=== PATIENT | female | born 1975 | race Caucasian/White ===

== ENCOUNTER 2016-11-04 12:34 | Emergency (ER) | payer OTHER ==
[~2016-11-04] VITALS: Ht 172.7 cm; Wt 116.6 kg
[~2016-11-04 12:34] MED LIST: NITR-5 PO; OXYC-57 PO; PRED50TA PO
[2016-11-04 12:37] VITALS: TEMP 37.6; Ht 172.7 cm; Wt 116.6 kg
[2016-11-04] MEDS ORDERED: ASPIRIN 81 MG CHEW PO STA (13:08)
[2016-11-04] MEDS ORDERED: FENTANYL CITRATE INJ 50 MCG/1 ML 2 ML VIAL IV STA (13:13)
[2016-11-04 13:15] LABS: BASO % 0.6 %; BASO ABS # 0.05 K/uL (0-0.2); COMPLETE YES; EOS % 6.7 %; IG% 0.1 %; LYMPH % 40.8 %; LYMPH ABS # 3.16 K/uL (1.2-3.4); MEAN CELL VOLUME 92.4 fL (80-100); MEAN CORPUSCULAR HEMOGLOBIN 31.9 pg (25-34); MEAN CORPUSCULAR HGB CONC 34.5 g/dl (32-36); MEAN PLATELET VOLUME 9.7 fL (7.4-10.4); NEUT % 42.8 %; PLATELET COUNT 347 K/uL (130-400); RED BLOOD COUNT 4.33 M/uL (4.2-5.4); WHITE BLOOD COUNT 7.74 K/uL (4.8-10.8)
[2016-11-04] MEDS ORDERED: SODIUM CHLORIDE 0.9% 1000ML 1,000 ML IV STA (13:18)
[2016-11-04] MEDS ORDERED: CITA20TA4 PO (13:31)
[2016-11-04] MEDS ORDERED: LORA-741 PO (13:31)
[2016-11-04] MEDS ORDERED: LISI-461 PO (13:31)
[2016-11-04 13:34] LABS: BLOOD UREA NITROGEN 11 mg/dl (7-18); CALCIUM 9.5 mg/dl (8.5-10.1); CARBON DIOXIDE 27 mmol/L (21-32); CHLORIDE 101 mmol/L (98-107); CREATININE 0.85 mg/dl (0.60-1.20); GLUCOSE 97 mg/dl (70-99); POTASSIUM 3.5 mmol/L (3.5-5.1); SODIUM 139 mmol/L (136-145)
--- NOTE | 2016-11-04 13:55 | DIAGNOSTIC IMAGING REPORT ---
CHEST ONE VIEW PORTABLE CLINICAL HISTORY: Chest Pain dyspnea COMPARISON STUDY: No previous studies for comparison. FINDINGS: The bones soft tissues and hemidiaphragms are normal. The cardiomediastinal silhouette is normal. The lungs are clear. The pulmonary vasculature is normal. IMPRESSION: Negative chest. Electronically signed by: Tony Santiago M.D. 11/04/2016 1:53 PM Dictated Date/Time: 11/04/2016 1:53 PM
[2016-11-04] MEDS ORDERED: OPTIRAY 320 IV PRN (14:30)
--- NOTE | 2016-11-04 14:52 | DIAGNOSTIC IMAGING REPORT ---
CHEST CTA for PULMONARY ARTERIES CT DOSE: 619.02 mGycm HISTORY: Atypical chest pain. TECHNIQUE: Multiaxial CT images of the chest were performed following the intravenous administration of contrast to evaluate the pulmonary arteries. Maximal intensity projection images were also obtained. COMPARISON STUDY: Chest CTA 05/20/06 FINDINGS: There is a normal caliber thoracic aorta with no evidence for dissection. There is no evidence for pulmonary embolus. No pleural effusions. No pneumothorax. No mediastinal or hilar lymphadenopathy. The central airways are patent. Calcified left mediastinal or left hilar lymph nodes are again noted. Hepatic steatosis. Punctate calcification within the spleen. Punctate calcified granuloma within the left upper lobe. Otherwise, the lungs are clear IMPRESSION: No evidence for pulmonary embolus. Electronically signed by: Erasto Florian M.D. 11/04/2016 2:51 PM Dictated Date/Time: 11/04/2016 2:42 PM
[2016-11-04 16:50] VITALS: BP 132/72; PULSE 86; O2SAT 98
--- NOTE | 2016-11-04 21:00 | EMERGENCY ROOM VISIT NOTE ---
History Report prepared by Armando: Libby Luque Under the Supervision of: Dr. Stephen Pena D.O. First contact with patient: 13:02 Chief Complaint: COUGH Stated Complaint: CHEST PAIN, L ARM NUMB Nursing Triage Summary: Pt c/o chest pain with cough and congestion since this morning, then started getting left ear pain and numbness in her whole arm down to her pinky. Pt c/o cough, productive, "heavy, clear liquid" x 2 months. History of Present Illness The patient is a 41 year old female who presents to the Emergency Room with complaints of persistent left sided chest pain that began this morning around 0900. She currently rates her discomfort as a 7/10 in severity. The patient states that this morning she started noticing a heaviness in her chest at 9 AM. She states that she was going to try to take her blood pressure medications, but states that she did not have them with her. The patient states that her pain began to worsen and started noticing left arm numbness. She additionally notes a pain into her left jaw and behind her left ear. The patient states that she called her PCP and explained her symptoms and was instructed to come to the emergency department for further work up. She states that her pain is worsened with breathing, noting that it becomes sharp but describes it persistently as a tightness. The patient additionally notes increased swelling to her lower extremities. The patient states that she has had a recent cough and congestion that began two months ago. She notes a personal history of hypertension and asthma, but denies any history of diabetes, high cholesterol, or heart disease. The patient denies any family history of sudden at a young age. She denies any recent travel. The patient denies taking any aspirin today. Pt denies headache, change in vision, fevers, sore throat, shortness of breath, nausea, vomiting, diarrhea, pain with urination, and melena. Source of History: patient Onset: this morning around 0900 Position: chest (left) Symptom Intensity: 7/10 Quality: sharp, other (heaviness, tightness) Timing: other (persistent) Modifying Factors (Worsening): breathing Associated Symptoms: + cough, + numbness (left arm) Note: Associated Symptoms: Increased swelling to lower extremities, congestion, pain radiating to left ear and jaw Review of Systems See HPI for pertinent positives & negatives. A total of 10 systems reviewed and were otherwise negative. Past Medical & Surgical Medical Problems: (1) Asthma (2) Bronchitis (3) Hypertension (4) Kidney stone (5) Pneumonia Surgical Problems: (1) H/O: hysterectomy Family History FH: cancer FH: heart disease FH: lung disease Hypertension Seizures Social History Smoking Status: Former Smoker Smokeless Tobacco Use: No Alcohol Use: occasionally Marital Status: single Housing Status: lives with family Occupation Status: employed Current/Historical Medications Scheduled Citalopram Hydrobromide (Citalopram Hydrobromide), 20 MG PO DAILY Lisinopril (Zestril), 10 MG PO DAILY Scheduled PRN Lorazepam (Ativan), 0.5 MG PO DAILY PRN for Anxiety Allergies Coded Allergies: Sulfa Drugs (Verified Allergy, Unknown, 11/04/16) Physical Exam Vital Signs Date Time Temp Pulse Resp B/P Pulse Ox O2 Delivery O2 Flow Rate FiO2 11/04/16 16:50 86 18 132/72 98 11/04/16 15:33 80 18 116/75 98 Room Air 11/04/16 14:57 93 20 131/87 98 Room Air 11/04/16 13:39 90 11/04/16 13:16 91 21 157/85 98 Room Air 11/04/16 12:37 37.6 106 18 185/100 97 Room Air Physical Exam GENERAL: Sitting up in bed, alert, well appearing, well nourished, no distress, non-toxic EYE EXAM: normal conjunctiva, extraocular muscles intact OROPHARYNX: no exudate, no erythema, lips, buccal mucosa, and tongue normal and mucous membranes are moist NECK: supple, no nuchal rigidity, no adenopathy, non-tender LUNGS: Clear to auscultation. Normal chest wall mechanics HEART: no murmurs, S1 normal and S2 normal ABDOMEN: abdomen soft, non-tender, normo-active bowel sounds, no masses, no rebound or guarding. BACK: Back is symmetrical on inspection and there is no deformity, no midline tenderness, no CVA tenderness. SKIN: no rashes and no bruising UPPER EXTREMITIES: upper extremities are grossly normal. Radial pulses are equal bilaterally. LOWER EXTREMITIES: No pitting edema. NEURO EXAM: Normal sensorium, cranial nerves II-XII intact, normal speech, no weakness of arms, no weakness of legs. No drift. Finger to nose intact. Gross sensation intact. Medical Decision & Procedures ER Provider Diagnostic Interpretation: Xray results per the radiologist and my interpretation. Other results have been interpreted by the radiologist and reviewed by me. CHEST ONE VIEW PORTABLE CLINICAL HISTORY: Chest Pain dyspnea COMPARISON STUDY: No previous studies for comparison. FINDINGS: The bones soft tissues and hemidiaphragms are normal. The cardiomediastinal silhouette is normal. The lungs are clear. The pulmonary vasculature is normal. IMPRESSION: Negative chest. Electronically signed by: Tony Santiago M.D. 11/04/2016 1:53 PM Dictated Date/Time: 11/04/2016 1:53 PM CHEST CTA for PULMONARY ARTERIES CT DOSE: 619.02 mGycm HISTORY: Atypical chest pain. TECHNIQUE: Multiaxial CT images of the chest were performed following the intravenous administration of contrast to evaluate the pulmonary arteries. Maximal intensity projection images were also obtained. COMPARISON STUDY: Chest CTA 05/20/06 FINDINGS: There is a normal caliber thoracic aorta with no evidence for dissection. There is no evidence for pulmonary embolus. No pleural effusions. No pneumothorax. No mediastinal or hilar lymphadenopathy. The central airways are patent. Calcified left mediastinal or left hilar lymph nodes are again noted. Hepatic steatosis. Punctate calcification within the spleen. Punctate calcified granuloma within the left upper lobe. Otherwise, the lungs are clear IMPRESSION: No evidence for pulmonary embolus. Electronically signed by: Erasto Florian M.D. 11/04/2016 2:51 PM Dictated Date/Time: 11/04/2016 2:42 PM Laboratory Results 11/04/16 13:00 Red Blood Count 4.33, Mean Corpuscular Volume 92.4, Mean Corpuscular Hemoglobin 31.9, Mean Corpuscular Hemoglobin Concent 34.5, Mean Platelet Volume 9.7, Neutrophils (%) (Auto) 42.8, Lymphocytes (%) (Auto) 40.8, Monocytes (%) (Auto) 9.0, Eosinophils (%) (Auto) 6.7, Basophils (%) (Auto) 0.6, Neutrophils # (Auto) 3.30, Lymphocytes # (Auto) 3.16, Monocytes # (Auto) 0.70, Eosinophils # (Auto) 0.52, Basophils # (Auto) 0.05 11/04/16 13:00 Test 11/04/16 13:00 11/04/16 14:55 White Blood Count 7.74 K/uL (4.8-10.8) Red Blood Count 4.33 M/uL (4.2-5.4) Hemoglobin 13.8 g/dL (12.0-16.0) Hematocrit 40.0 % (37-47) Mean Corpuscular Volume 92.4 fL (80-100) Mean Corpuscular Hemoglobin 31.9 pg (25-34) Mean Corpuscular Hemoglobin Concent 34.5 g/dl (32-36) Platelet Count 347 K/uL (130-400) Mean Platelet Volume 9.7 fL (7.4-10.4) Neutrophils (%) (Auto) 42.8 % Lymphocytes (%) (Auto) 40.8 % Monocytes (%) (Auto) 9.0 % Eosinophils (%) (Auto) 6.7 % Basophils (%) (Auto) 0.6 % Neutrophils # (Auto) 3.30 K/uL (1.4-6.5) Lymphocytes # (Auto) 3.16 K/uL (1.2-3.4) Monocytes # (Auto) 0.70 K/uL (0.11-0.59) Eosinophils # (Auto) 0.52 K/uL (0-0.5) Basophils # (Auto) 0.05 K/uL (0-0.2) RDW Standard Deviation 47.0 fL (36.4-46.3) RDW Coefficient of Variation 13.9 % (11.5-14.5) Immature Granulocyte % (Auto) 0.1 % Immature Granulocyte # (Auto) 0.01 K/uL (0.00-0.02) D-Dimer 1030 ug/L FEU (0-500) Anion Gap 11.0 mmol/L (3-11) Est Creatinine Clear Calc Drug Dose 114.5 ml/min Estimated GFR () 97.3 Estimated GFR (Non- 83.9 BUN/Creatinine Ratio 13.0 (10-20) Calcium Level 9.5 mg/dl (8.5-10.1) Total Creatine Kinase 206 U/L (26-192) Creatine Kinase MB 2.0 ng/ml (0.5-3.6) Creatine Kinase MB Ratio 1.0 (0-3.0) Chemistry Specimen Hemolysis Troponin I < 0.015 ng/ml (0-0.045) Laboratory results per my review. Medications Administered Medications (Trade) Dose Ordered Sig/Pan Route Start Time Stop Time Status Last Admin Dose Admin Aspirin (Aspirin Chew) 324 mg NOW STAT PO 11/04/16 13:08 11/04/16 13:10 DC 11/04/16 13:17 324 MG Fentanyl Citrate 50 mcg 50 mcg ONE STAT IV 11/04/16 13:13 11/04/16 13:14 DC 11/04/16 13:35 50 MCG Sodium Chloride (Nss 1000ml) 1,000 ml @ 999 mls/hr Q1H1M STAT IV 11/04/16 13:18 11/04/16 14:18 DC 11/04/16 13:35 999 MLS/HR ECG Indication: chest pain Rate (beats per minute): 104 Rhythm: sinus tachycardia Findings: no ectopy, other (normal axis, normal intervals) ED Course ED COURSE: Vital signs were reviewed and showed tachycardic and hypertensive The patients medical record was reviewed The above diagnostic studies were performed and reviewed. ED treatments and interventions as stated above. 1304: The patient was evaluated in room C1B. A complete history and physical examination was performed. 1308: Ordered Aspirin 324 mg PO. 1313: Ordered Fentanyl Citrate 50 mcg IV. 1318: Ordered Sodium Chloride 1000 ml @ 999 mls/hr IV. 1425: I reevaluated the patient and informed her of her test results. She is going to have a CT scan. 1504: I discussed the patients case with Dr. Marroquin, Cardiology. He is going to stress the patient. 1507: I reevaluated the patient and she is resting comfortably. I discussed the exam findings with her. And she is going to be stressed by cardiology. She is in agreement with the plan. 1529: Per nursing staff, the patient is going over for her stress test now. 1628: Upon reevaluation, the patient is resting comfortably.I discussed my findings with the patient and she understands and agrees with the treatment plan. Based on the patients age, coexisting illnesses, exam and lab findings the decision to treat as an outpatient was made. The patient remained stable while under my care. The patient appeared well at the time of discharge. Medical Decision Differential diagnoses includes but is not limited to acute coronary syndrome, myocardial infarction, pericarditis, pulmonary embolus, aortic dissection, pneumonia, pneumothorax, musculoskeletal, shingles, esophageal. Patient is a 41-year-old female who presents the ER for chest pain with associated with left arm paresthesias and jaw pain. This started around 9 AM this morning. No significant shortness of breath with this. Labs show no significant leukocytosis or anemia. BMP was unremarkable. Troponins were negative 2. D-dimer was positive CT PE Was Performed and Was Negative. Discussed case with cardiology and stress test was performed which was negative. With her cough and upper esterase symptoms I favor this is likely a pleuritis at this point especially with a negative stress test and a negative CT PE. I updated the patient regards this. She had previously received aspirin upon presentation. Discussed with Pt concerning signs and symptoms to watch out for. Pt was instructed to follow up with their PCP and discussed with the patient their option to return to the ED at anytime for persistent or worsening symptoms. The appropriate anticipatory guidance and out-patient management, including indications for return to the emergency department, were explained at length to the patient and understood. Consults Time Called: 1502 Consulting Physician: Dr. Marroquin, Cardiology Returned Call: 1504 I discussed the patients case with Dr. Marroquin, Cardiology. He is going to stress the patient. Impression Primary Impression: Left sided chest pain Additional Impression: Cough Scribe Attestation The scribe's documentation has been prepared under my direction and personally reviewed by me in its entirety. I confirm that the note above accurately reflects all work, treatment, procedures, and medical decision making performed by me. Departure Information Dispostion Home / Self-Care Referrals Zena Kirk, C.R.N.P. (PCP) Forms HOME CARE DOCUMENTATION FORM, IMPORTANT VISIT INFORMATION Patient Instructions Chest Pain - [facility], My [facility] Additional Instructions Please follow up with your primary care doctor with in the next 24 hours. Any worsening of your symptoms, please return to the ED immediately. This includes fevers greater than 100.4, worsening chest pain, shortness of breath, passing out, or any other concerning signs or symptoms from your standpoint. Please take Motrin or Tylenol as needed for pain. CT of your chest was unremarkable and your stress test was completely negative. Problem Qualifiers
--- NOTE | 2016-11-05 11:25 | EXERCISE STRESS ECHO ---
*NOTICE TO RECEIVING [employer] This information is strictly Confidential and protected under [place] law. [place] law prohibits you from making any further disclosure of this information unless further disclosure is expressly permitted by the written consent of the person to whom it pertains or is authorized by law. A general authorization for the release of medical or other information is not sufficient for this purpose. Hospital accepts no responsibility if the information is made available to any other person, INCLUDING THE PATIENT. Interpretation Summary * Name: AMADA TRAN Study Date: 11/04/2016 03:40 PM BP: 151/72 mmHg * Patient Location: [facility] HR: 98 * : 1975 (M/d/yyyy) Gender: Female Height: 68 in * Age: 41 yrs Ethnicity: [place] Weight: 257 lb * Ordering Physician: Stephen Pena * Performed By: Erin Gross RDCS * * Reason For Study: Chest pain * BSA: 2.3 m2 * -- Conclusions -- * Normal stress echocardiogram at 8.6 METS and a peak heart rate of 87% predicted maximum. * No exercise induced chest pain. * No ECG changes. * Baseline echocardiogram notes normal left ventricular systolic function without wall motion abnormalities. Procedure Details * ECHOEX, CPT #84715 Left Ventricle * Left ventricular systolic function is normal. * Resting wall motion: Normal. Stress wall motion: Appropriate increase in Left ventricular systolic function and decrease in cavity size. No stress induced segmental wall motion abnormalities. Stress Parameters * The baseline ECG displays normal sinus rhythm. * The stress ECG response was normal * The stress portion of this study was personally supervised by the undersigned interpreting physician. * Rest heart rate was '98' BPM. * Rest blood pressure was '151/72' * Maximum heart rate achieved was 155 bpm. * Maximum heart rate was 87 % of maximum age-predicted heart rate. * Maximum blood pressure was '210/50' * Total exercise time was '7:05' * Maximum exercise MET level achieved was '8.60' METS * Maximum treadmill speed was '3.40' miles per hour. * Maximum treadmill elevation was '14.00'% grade. * Exercise was terminated due to 'achieving target heart rate'
== END 2016-11-04 16:52 | disposition home or self-care (01) ==
LOC: C.EDB 12:36 → C.EDC 16:52
DX: R07.9 Chest pain, unspecified (principal); I10 Essential (primary) hypertension; J45.909 Unspecified asthma, uncomplicated; Z87.442 Personal history of urinary calculi; Z87.01 Personal history of pneumonia (recurrent); Z90.710 Acquired absence of both cervix and uterus; Z82.49 Family history of ischemic heart disease and other diseases of the circulatory system; Z82.0 Family history of epilepsy and other diseases of the nervous system; Z79.899 Other long term (current) drug therapy; R20.9 Unspecified disturbances of skin sensation

== ENCOUNTER → 2016-12-25 | Outpatient (CLI) | payer OTHER ==
[~2016-12-25] MED LIST changes: +CITA20TA4 PO; +LISI-461 PO; +LORA-741 PO; -NITR-5 PO; -OXYC-57 PO; -PRED50TA PO
--- NOTE | 2016-12-25 15:15 | DIAGNOSTIC IMAGING REPORT ---
ADDENDUM ADDENDUM: A 08/10/2015 examination from [facility] was subsequently presented for comparison. All findings were reported are unchanged. As noted, the region of subtle FLAIR hyperintensity within the left frontal lobe white matter is unchanged dating back to 2006 and of low suspicion. No heterotopic hartley matter is identified. Electronically signed by: Champ Escudero M.D. 12/27/2016 11:29 AM Dictated Date/Time: 12/27/2016 11:27 AM ORIGINAL REPORT MRI OF THE BRAIN WITHOUT IV CONTRAST CLINICAL HISTORY: Follow-up unspecified abnormal MRI of the brain. COMPARISON STUDY: CT of the brain dated 05/07/2012. MRI of the brain dated 01/08/2007. TECHNIQUE: MRI of the brain was performed utilizing various T1 and T2-weighted sequences in the axial, sagittal, and coronal planes. IV contrast was not administered for this examination. FINDINGS: Brain parenchyma: A faint tiny focus of T2 signal abnormality within the left posterior frontal/periventricular white matter is unchanged dating back to the 01/08/2007 examination and of doubtful significance. The brain parenchyma is otherwise normal in appearance. There is no hemorrhage or mass effect. There is no restricted diffusion to suggest acute ischemia. Hartley-white matter differentiation is preserved. No extra-axial fluid collection is seen. The cerebellar tonsils are normal in configuration. Ventricles, sulci, and cisterns: Normal in configuration. Pituitary and sella: Unremarkable. Intracranial vasculature: Normal flow voids are maintained at the skull base. Orbits: The bony orbits are grossly intact. Orbital contents are normal in appearance. Sinuses and mastoids: Trace mucosal thickening is seen in the right sphenoid sinus. The remaining paranasal sinuses and the mastoid air cells are clear. Calvarium: Unremarkable. Cervical cord: Partially visualized cervical spinal cord is normal in morphology and signal intensity. IMPRESSION: No acute intracranial abnormality. Electronically signed by: Champ Escudero M.D. 12/25/2016 3:13 PM Dictated Date/Time: 12/25/2016 2:03 PM
== END | disposition home or self-care (01) ==
LOC: C.MRI 13:04
PROVIDERS: ATTEND Psychiatry & Neurology Neurology
DX: R90.89 Other abnormal findings on diagnostic imaging of central nervous system (principal); R25.3 Fasciculation

== ENCOUNTER → 2017-03-03 | Outpatient (CLI) | payer OTHER ==
[2017-03-03 13:32] LABS: ALT/SGPT 31 U/L (12-78); BLOOD UREA NITROGEN 13 mg/dl (7-18); BUN/CREATININE RATIO 17.2 (10-20); CALCIUM 9.5 mg/dl (8.5-10.1); CARBON DIOXIDE 26 mmol/L (21-32); CHLORIDE 105 mmol/L (98-107); CHOLESTEROL 194 mg/dl (0-200); CREATININE 0.76 mg/dl (0.60-1.20); GLUCOSE 90 mg/dl (70-99); POTASSIUM 3.6 mmol/L (3.5-5.1); SODIUM 140 mmol/L (136-145); TRIGLYCERIDES 157 mg/dl (0-150); VERY LOW DENSITY LIPOPROT CALC 31 mg/dl
[2017-03-03 13:35] LABS: ALKALINE PHOSPHATASE 83 U/L (45-117); AST/SGOT 20 U/L (15-37); CHOLESTEROL/HDL RATIO 4.6; HDL CHOLESTEROL 42 mg/dl; LDL CHOLESTEROL CALCULATED 121 mg/dl
== END | disposition home or self-care (01) ==
LOC: C.LABBFT 07:39
PROVIDERS: ATTEND Nurse Practitioner
DX: K76.0 Fatty (change of) liver, not elsewhere classified (principal)

== ENCOUNTER 2017-10-07 19:34 | Emergency (ER) | payer OTHER ==
[~2017-10-07] VITALS: Ht 175.3 cm; Wt 120.0 kg
[2017-10-07 19:47] VITALS: TEMP 36.8; Ht 175.3 cm; Wt 120.0 kg
[2017-10-07] MEDS ORDERED: OXYCODONE HCL IR 5 MG TAB (IMMEDIATE RELEASE) PO STA (19:57)
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
[2017-10-07] MEDS ORDERED: AMLO-110 PO (21:06)
[2017-10-07] MEDS ORDERED: PROAIR INH (21:06)
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
[2017-10-07] MEDS ORDERED: OXYCODONE IR HOME PACK PO STA (21:16)
[2017-10-07] MEDS ORDERED: OXYC1TAB3 PO (21:17)
[2017-10-07 21:36] VITALS: BP 169/100; PULSE 90; O2SAT 96
== END 2017-10-07 21:38 | disposition home or self-care (01) ==
LOC: C.EDB 19:36 → C.EDD 21:38
DX: S09.90XA Unspecified injury of head, initial encounter (principal); M54.2 Cervicalgia; M54.9 Dorsalgia, unspecified; M79.602 Pain in left arm; V43.52XA Car driver injured in collision with other type car in traffic accident, initial encounter; J45.909 Unspecified asthma, uncomplicated; I10 Essential (primary) hypertension; Z87.442 Personal history of urinary calculi; Z87.01 Personal history of pneumonia (recurrent); Z90.710 Acquired absence of both cervix and uterus; Z80.9 Family history of malignant neoplasm, unspecified; Z82.49 Family history of ischemic heart disease and other diseases of the circulatory system; Z82.0 Family history of epilepsy and other diseases of the nervous system; Z79.899 Other long term (current) drug therapy

== ENCOUNTER → 2017-10-22 | Outpatient (CLI) | payer OTHER ==
[~2017-10-22] MED LIST changes: +AMLO-110 PO; -LISI-461 PO; +OXYC1TAB3 PO; +PROAIR INH
--- NOTE | 2017-10-22 16:54 | DIAGNOSTIC IMAGING REPORT ---
CERVICAL SPINE MRI HISTORY: Neck pain. Left arm pain. CERVICAL DISC HERNIATION TECHNIQUE: Multiplanar multisequence MRI of the cervical spine was performed without the use of contrast. COMPARISON STUDY: Cervical spine CT 10/07/2017. FINDINGS: Straightening of the cervical spine. No fracture or subluxation. Prevertebral soft tissues and the C1-C2 interval are intact. Normal marrow signal intensity seen throughout the visualized osseous structures. The cervical spinal cord is normal in course, caliber, and signal intensity. Mild facet arthrosis at C7-T1. Mild disc space narrowing at C6-C7 with small endplate osteophytes. C2-C3: No significant central canal or neural foraminal narrowing. C3-C4: No significant central canal or neural foraminal narrowing. C4-C5: Focal central annular tear without significant central canal or neural foraminal narrowing. C5-C6: Small right paracentral focal disc protrusion without significant central canal or neural foraminal narrowing. C6-C7: Small broad-based posterior disc protrusion resulting in partial effacement of the anterior thecal sac without cord deformity. There is trace increased T2 signal at the epidural space at this location which may represent edema from the acute disc herniation. No significant neural foraminal narrowing. C7-T1: No significant central canal or neural foraminal narrowing. IMPRESSION: 1. No fractures or subluxation within the cervical spine. 2. Straightening of the cervical spine. 3. Small right paracentral focal disc protrusion at C5-C6 without significant central canal or neural foraminal narrowing. 4. Small broad-based posterior disc protrusion resulting in partial effacement of the anterior thecal sac without cord deformity. There is trace increased T2 signal at the epidural space at this location adjacent to the disc herniation which may represent edema from the acute disc herniation. Electronically signed by: Erasto Florian M.D. 10/22/2017 4:53 PM Dictated Date/Time: 10/22/2017 4:37 PM
== END | disposition home or self-care (01) ==
LOC: C.MRIBC 15:35
PROVIDERS: ATTEND Orthopaedic Surgery Orthopaedic Surgery of the Spine
DX: M50.20 Other cervical disc displacement, unspecified cervical region (principal)

== ENCOUNTER → 2017-10-27 | Outpatient (CLI) | payer OTHER ==
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
== END | disposition home or self-care (01) ==
LOC: C.MRI 18:09
PROVIDERS: ATTEND Nurse Practitioner
DX: G44.309 Post-traumatic headache, unspecified, not intractable (principal); S06.0X9S Concussion with loss of consciousness of unspecified duration, sequela; V49.9XXS Car occupant (driver) (passenger) injured in unspecified traffic accident, sequela

== ENCOUNTER → 2017-11-25 | Outpatient (CLI) | payer OTHER | LOC: C.LABSPEC 17:07 | PROVIDERS: ATTEND Physician Assistant | DX: K13.79 Other lesions of oral mucosa (principal) ==

== ENCOUNTER → 2017-12-01 | Outpatient (CLI) | payer OTHER ==
[2017-12-01 15:03] LABS: BLOOD UREA NITROGEN 20 mg/dl (7-18); CALCIUM 9.5 mg/dl (8.5-10.1); CARBON DIOXIDE 27 mmol/L (21-32); CREATININE 0.89 mg/dl (0.60-1.20); GLUCOSE 98 mg/dl (70-99); POTASSIUM 3.4 mmol/L (3.5-5.1); SODIUM 137 mmol/L (136-145)
== END | disposition home or self-care (01) ==
LOC: C.LABBFT 10:59
PROVIDERS: ATTEND Nurse Practitioner
DX: I10 Essential (primary) hypertension (principal)

== ENCOUNTER → 2018-01-13 | Outpatient (CLI) | payer OTHER ==
--- NOTE | 2018-01-13 14:15 | DIAGNOSTIC IMAGING REPORT ---
VIDEO SWALLOW HISTORY: K13.79 Uvular [id number] Dysphagiapatient having difficulty TECHNIQUE: Video fluoroscopic evaluation of swallowing was performed in the AP and lateral projections by the speech pathology staff. The patient is fed nectar-thick and thin liquid barium, a barium coated wafer, and barium pudding. FLUOROSCOPY TIME: 1.2 minutes. A cine loop submitted. COMPARISON STUDY: None. FINDINGS: There is normal hyoid excursion and epiglottic deflection. No significant penetration or aspiration identified. Swallowing function is within normal limits. IMPRESSION: 1. No aspiration identified. 2. Please see the speech pathologist report for detailed findings and recommendations. Electronically signed by: Erasto Florian M.D. 01/13/2018 2:14 PM Dictated Date/Time: 01/13/2018 2:11 PM
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
== END | disposition home or self-care (01) ==
LOC: C.RAD 13:27
PROVIDERS: ATTEND Physician Assistant
DX: K13.79 Other lesions of oral mucosa (principal); R13.10 Dysphagia, unspecified

== ENCOUNTER → 2018-03-19 | Outpatient (CLI) | payer OTHER ==
[~2018-03-19] MED LIST changes: -AMLO-110 PO; -CITA20TA4 PO; +DULO60CA44 PO; +HYDR25TA4 PO; +METO100T44 PO; -OXYC1TAB3 PO; +PRLSR20 PO
== END | disposition home or self-care (01) ==
LOC: C.LABBC 13:52
PROVIDERS: ATTEND Psychiatry & Neurology Neurology
DX: G25.81 Restless legs syndrome (principal)